=== PATIENT | female | born 1945 | race Caucasian/White ===

== ENCOUNTER 2024-12-21 18:55 | Emergency (ER) | payer SELFPAY ==
[~2024-12-21] VITALS: Ht 165.1 cm; Wt 66.0 kg
[2024-12-21 19:13] VITALS: O2SAT 98
[2024-12-21] MEDS: HYDROCODONE/ACETAMINOPHEN 5/325MG TABLET PO ONE (20:32)
[2024-12-21] MEDS: IBUPROFEN 400MG TABLET PO ONE (20:59)
[2024-12-21 22:15] VITALS: BP 146/86; PULSE 74; RESP 14; TEMP 36.8; O2SAT 98
[2024-12-21] MEDS: ACETAMINOPHEN 325MG TABLET PO ONE (22:15)
== END 2024-12-21 22:36 | disposition home or self-care (01) ==
LOC: ER 18:55
DX: S42.291A Other displaced fracture of upper end of right humerus, initial encounter for closed fracture (principal); S42.211A Unspecified displaced fracture of surgical neck of right humerus, initial encounter for closed fracture; M25.511 Pain in right shoulder; M25.551 Pain in right hip; M16.12 Unilateral primary osteoarthritis, left hip; Z88.5 Allergy status to narcotic agent; W19.XXXA Unspecified fall, initial encounter; Y93.89 Activity, other specified; Y92.89 Other specified places as the place of occurrence of the external cause; Y99.8 Other external cause status
CPT/HCPCS: 73502; 73030; 73060; 73080; 99284; Z7610